=== PATIENT | male | born 1960 | race Caucasian/White ===

== ENCOUNTER → 2020-11-26 | Outpatient (CLI) | payer OTHER ==
--- NOTE | 2020-11-26 17:42 | RAD ---
EXAMINATION: XR LUMBAR SPINE 2-3V CLINICAL HISTORY: Low back pain TECHNIQUE: XR LUMBAR SPINE 2-3V Number of Images/Views: 3 COMPARISON: None FINDINGS: Normal anatomic alignment. No evidence of acute fracture or spondylolisthesis. Disc spaces are relati vely well-maintained. Mild facet arthropathy. Neural foraminal narrowing in the lower lumbar spine, i ncompletely evaluated. Degenerative changes bilateral SI joints, incompletely evaluated. Vascular harley cifications. IMPRESSION: Mild degenerative changes as described. Electronically signed by: Silvio Womack DO (11/26/2020 5:40 PM) [id number]
== END ==
LOC: RAD 13:50
PROVIDERS: ATTEND Family Medicine
DX: Z02.71 Encounter for disability determination (principal); M47.816 Spondylosis without myelopathy or radiculopathy, lumbar region; M48.061 Spinal stenosis, lumbar region without neurogenic claudication; M46.1 Sacroiliitis, not elsewhere classified
CPT/HCPCS: 72100